=== PATIENT | male | born 1970 | race Caucasian/White ===

== ENCOUNTER 2022-01-27 15:47 | Outpatient (CLI) | payer MEDICAID | END 2022-01-27 23:59 | disposition critical access hospital (66) | LOC: EMS 15:47 | DX: T63.461A Toxic effect of venom of wasps, accidental (unintentional), initial encounter (principal); R09.89 Other specified symptoms and signs involving the circulatory and respiratory systems; R60.1 Generalized edema; L50.9 Urticaria, unspecified | CPT/HCPCS: A0425; A0427; A0999 ==

== ENCOUNTER 2022-01-27 16:20 | Emergency (ER) | payer MEDICAID ==
--- NOTE | 2022-01-27 16:20 | ED Physician Documentation ---
History of Present Illness - Stated complaint Stated Complaint: ANAPHYLAXIS - History obtained from History obtained from: Patient, EMS - Additonal information Additional information: 51-year-old gentleman with history of iodine allergy was weed eating and hit a hive of bees and they basically stung him all over. He developed swelling especially of the chest and lower neck anteriorly. A home EpiPen was used and he also took 50 mg of oral Benadryl and his symptoms at this point have resolved. He did not have a prior bee sting allergy. He was hypotensive when EMS arrived about 80/40 which quickly resolved. Review of Systems Ten Systems: 10 systems reviewed and negative Constitutional: denies: Fever, Chills Cardiac: denies: Chest pain / pressure, Palpitations Respiratory: denies: Dyspnea, Cough PD PAST MEDICAL HISTORY - Present Medications Home Medications: Ambulatory Orders Medication Instructions Recorded Confirmed EPINEPHrine [Epinephrine] 0.3 mg IJ ONCE PRN #2 each 01/27/22 - Allergies Allergies/Adverse Reactions: Allergies Allergy/AdvReac Type Severity Reaction Status Date / Time bee venom protein (honey bee) Allergy Anaphylaxis Verified 01/27/22 16:28 iodine Allergy Anaphylaxis Verified 01/27/22 16:28 PD ED PE NORMAL - Vitals Vital signs reviewed: Yes - General General: Alert and oriented X 3 (Slightly sleepy from the Benadryl, but in no distress.) - HEENT HEENT: PERRL, EOMI, Pharynx benign - Cardiac Cardiac: RRR, No murmur - Respiratory Respiratory: No respiratory distress, Clear bilaterally - Abdomen Abdomen: Normal bowel sounds, Soft, Non tender - Derm Derm: Normal color, Warm and dry, No rash - Neuro Neuro: Alert and oriented X 3, Normal speech Results - Vitals Vitals: Vital Signs - 24 hr 01/27/22 01/27/22 01/27/22 16:21 16:28 17:27 Temperature 36 C L Heart Rate 79 72 75 Respiratory 12 12 17 Rate Blood Pressure 127/62 116/77 124/77 O2 Saturation 95 98 97 01/27/22 18:30 Temperature Heart Rate 65 Respiratory 14 Rate Blood Pressure 128/78 O2 Saturation 99 Oxygen O2 Source Room air PD MEDICAL DECISION MAKING - ED course ED course: 51-year-old gentleman presents with anaphylaxis after multiple bee stings, treated in the field with epinephrine and Benadryl and resolved on arrival here. He was observed for approximately 3 hours with no indication of recurrence of symptoms on repeat evaluations. The patient Was counseled as to the diagnosis and need for follow-up. I counseled the patient with regard to signs and symptoms that would necessitate an urgent reevaluation in the emergency department. They understand they are welcome to return at any time if worse or if not improving as expected. This document was made in part using voice recognition software. While efforts are made to proofread this documents, sound alike and grammatical errors may occur. Departure - Departure Disposition: 01 Home, Self Care Clinical Impression: Anaphylaxis Qualifiers: Encounter type: initial encounter Qualified Code(s): T78.2XXA - Anaphylactic shock, unspecified, initial encounter Condition: Stable Record reviewed to determine appropriate education?: Yes Instructions: EpiPen Auto Injector Dc, ED Anaphylaxis General Prescriptions: EPINEPHrine [Epinephrine] 0.3 mg IJ ONCE PRN #2 each PRN Reason: Allergy Symptoms Comments: Call your doctor to arrange a follow-up appointment, make the next available appointment. In the interim, return anytime if worse or if new symptoms develop. Discharge Date/Time: 01/27/22 18:58
[2022-01-27 18:49] VITALS: BP 128/78
== END 2022-01-27 18:58 | disposition home or self-care (01) ==
LOC: ED 16:20
DX: T78.2XXA Anaphylactic shock, unspecified, initial encounter (principal); T63.441A Toxic effect of venom of bees, accidental (unintentional), initial encounter
CPT/HCPCS: 99284